=== PATIENT | female | born 1950 | race Caucasian/White ===

== ENCOUNTER 2019-10-15 09:51 | Outpatient (CLI) | payer OTHER, BC | END 2019-10-15 10:08 | disposition home or self-care (01) | LOC: NUCLEAR 09:51 | DX: I10 Essential (primary) hypertension (principal); E78.2 Mixed hyperlipidemia; I73.9 Peripheral vascular disease, unspecified; I87.2 Venous insufficiency (chronic) (peripheral) ==

== ENCOUNTER 2019-10-18 07:48 | Outpatient (CLI) | payer OTHER, BC | END 2019-10-18 08:19 | disposition home or self-care (01) | LOC: NUCLEAR 07:48 | DX: I73.9 Peripheral vascular disease, unspecified (principal); E78.2 Mixed hyperlipidemia; I10 Essential (primary) hypertension ==